=== PATIENT | female | born 1940 | race Caucasian/White ===

== ENCOUNTER 2017-04-22 14:08 | Emergency (ER) | payer OTHER ==
[2017-04-22 14:16] VITALS: BP 130/78; PULSE 62; RESP 16; TEMP 98.2; O2SAT 94
== END 2017-04-22 16:24 | disposition left against medical advice (07) ==
DX: Z53.21 Procedure and treatment not carried out due to patient leaving prior to being seen by health care provider (principal)

== ENCOUNTER 2017-04-23 11:46 | Emergency (ER) | payer OTHER ==
[2017-04-23 12:02] VITALS: TEMP 98.1
--- NOTE | 2017-04-23 12:36 | EDPHY ---
H & P Stated Complaint: fall03/05 hit head /10 days ago started to have freq MENDEZ Time Seen by Provider: 04/23/17 12:35 - Personal History Current Tetanus/Diphtheria Vaccine: Yes Tetanus Vaccine Date: 2009 - Medical/Surgical History Hx Asthma: No Hx Chronic Respiratory Disease: No Hx Diabetes: No Hx Cardiac Disease: No Hx Renal Disease: No Hx Cirrhosis: No Hx Alcoholism: No Hx HIV/AIDS: No Hx Splenectomy or Spleen Trauma: No Other PMH: IBS, glaucoma - Social History Smoking Status: Never smoked Constitutional: Initial Vital Signs Temperature (C) 36.7 C 04/23/17 11:52 Heart Rate 66 04/23/17 11:52 Respiratory Rate 17 04/23/17 11:52 Blood Pressure 134/71 H 04/23/17 11:52 O2 Sat (%) 95 04/23/17 11:52 O2 Delivery Mode Room Air Allergies/Adverse Reactions: No Known Allergies Allergy (Verified 04/23/17 11:51) Home Medications: Medication Instructions Recorded KLONOPIN 04/22/17 Lexapro 04/22/17 Xalatan 04/22/17 Medical Decision Making ED Course/Re-evaluation: CHIEF COMPLAINT: Recurrent headaches HISTORY OF PRESENT ILLNESS: 76-year-old female who was traveling out of the country on March 05. She slipped and fell backward hitting her occiput on some cobblestoned. She does not think she lost consciousness. Her family was with her. She had no nausea vomiting. There was limited Health Care where she was and she spoke to a nurse at a local hospital who basically gave her head injury precautions but there was no workup done. She then proceeded to travel to another country and was doing quite well but over the last 2 weeks she has developed recurrent headaches which are quite severe according to her. Tylenol dull that but does not take it away. She denies any neurologic problems or deficits. This fall happened about 6 weeks ago. She saw her calculating machine mechanic last week because the headaches thinking it may be related to her eyes but the calculating machine mechanic ruled out. She then spoke to her primary care doctor that recommended she come to the ER. REVIEW OF SYSTEMS: A 10 point review of systems was performed and is negative with the exception of the elements mentioned in the history of present illness. PHYSICAL EXAM: HR, BP, O2 Sat, RR. Temp noted General Appearance: Alert, well hydrated, appropriate, and non-toxic appearing. Head: Atraumatic without scalp tenderness or obvious injury Eyes: Pupils equal, round, reactive to light and accommodation, EOMI, no trauma , no injection. Ears: Clear bilaterally, no perforation, normal landmarks Nose: Atraumatic, no rhinorrhea, clear. Throat: There is no erythema or exudates, no lesions, normal tonsils, mucus membranes moist. Neck: Supple, 2+ carotid upstroke, nontender, no lymphadenopathy. Respiratory: No retractions, no distress, no wheezes, and no accessory muscle use. Lungs are clear to auscultation bilaterally. Cardiovascular: Regular rate and rhythm, no murmurs, rubs, or gallops. Bilateral carotid, radial, dorsalis pedis, and posterior tibial pulses intact. Good capillary refill all extremities. Gastrointestinal: Abdomen is soft, nontender, non-distended, no masses, no rebound, no guarding, no peritoneal signs. Musculoskeletal: Normal active ROM of all extremities, atraumatic. Neurological: Alert, appropriate, and interactive. The patient has normal DTRs and non-focal cranial nerves, motor, sensory, and cerebellar exam. Skin: No rashes, good turgor, no nodules on palpation. Past medical history: Noncontributory, no blood thinners, no prior head injuries Past surgical history: Noncontributory Family history: Noncontributory Social history: , retired, does not abuse tobacco drugs or alcohol, very healthy and travels frequently DIAGNOSTICS/PROCEDURES/CRITICAL CARE TIME: Study: CT of the head without contrast Indication: fall with recurrent headaches rule out chronic subdural Results: CT scan of the head was obtained. The results of the study are normal. The study was read by the radiologist, Dr. Raphael Angela. I viewed the images myself on the PACS system. DIFFERENTIAL DIAGNOSIS: The differential diagnosis for the patient's trauma included but was not limited to intracranial injury, long bone and pelvic bone fractures, spinal injury, intra-abdominal injury, and intra-thoracic injury. MEDICAL DECISION MAKING: This patient will get a noncontrast CT of her head. Her injury happened about 6 weeks ago but I need to make sure there is no evidence of a chronic subdural hematoma. She has no neurologic findings on examination. This patient has no evidence of traumatic etiology for her recurrent headaches. We will refer her to Neurology for further workup and evaluation. She has a [facility] patient I will refer her to Dr. Mcgovern Departure - Departure Disposition: Home, Routine, Self-Care Clinical Impression: Headache Qualifiers: Headache type: unspecified Headache chronicity pattern: episodic headache Intractability: intractable Qualified Code(s): R51 - Headache Condition: Good Instructions: Acute Headache (ED) Additional Instructions: Return here if you have severe worsening headache. Follow up with Dr. Shaniqua samano at the [facility] and with Dr. Henderson Referrals: Kristine Henderson MD [Primary Care Provider] - As per Instructions Dipika Mcgovern DO [Non Staff and Non MD] - As per Instructions
[2017-04-23 13:42] VITALS: BP 129/73; PULSE 58; RESP 16; O2SAT 94
== END 2017-04-23 13:42 | disposition home or self-care (01) ==
DX: R51 Headache (principal)

== ENCOUNTER → 2017-04-26 | Outpatient (CLI) | payer OTHER | LOC: FIMAGING 12:02 | PROVIDERS: ATTEND Internal Medicine | DX: Z12.31 Encounter for screening mammogram for malignant neoplasm of breast (principal); Z80.3 Family history of malignant neoplasm of breast | CPT/HCPCS: G0202 ==

== ENCOUNTER → 2017-06-14 | Outpatient (CLI) | payer OTHER | LOC: BMCIMAGING 14:34 | PROVIDERS: ATTEND Orthopaedic Surgery Hand Surgery | DX: M18.31 Unilateral post-traumatic osteoarthritis of first carpometacarpal joint, right hand (principal) ==

== ENCOUNTER → 2018-05-25 | Outpatient (CLI) | payer OTHER | LOC: BMCIMAGING 16:33 | PROVIDERS: ATTEND Family Medicine | DX: R07.81 Pleurodynia (principal) | CPT/HCPCS: 71101-PO ==

== ENCOUNTER → 2018-08-09 | Outpatient (CLI) | payer OTHER | LOC: FIMAGING 15:02 | PROVIDERS: ATTEND Family Medicine Geriatric Medicine | DX: Z12.31 Encounter for screening mammogram for malignant neoplasm of breast (principal); Z80.3 Family history of malignant neoplasm of breast ==

== ENCOUNTER → 2018-12-05 | Outpatient (CLI) | payer OTHER | LOC: FIMAGING 12:21 | PROVIDERS: ATTEND Family Medicine Geriatric Medicine | DX: R50.9 Fever, unspecified (principal) ==